=== PATIENT | female | born 1955 | race Caucasian/White ===

== ENCOUNTER 2018-12-27 06:30 | Day surgery (SDC) | payer OTHER | END 2018-12-27 10:50 | disposition home or self-care (01) | LOC: CIR.AMB 06:30 | DX: R15.9 Full incontinence of feces (principal) | CPT/HCPCS: 64581; C1778 ==

== ENCOUNTER 2019-01-10 06:00 | Day surgery (SDC) | payer OTHER ==
[~2019-01-10 06:00] MED LIST: BIOTIN PO; ESSENTIAL DAIL1 EACH PO; LEXA; PANTOPRAZOLE PO; SYNTH PO; VIT D PO; ZANTAC150 M3 PO
== END 2019-01-10 10:20 | disposition home or self-care (01) ==
LOC: CIR.AMB 06:00
DX: R15.9 Full incontinence of feces (principal)
CPT/HCPCS: 64590; C1767

== ENCOUNTER 2019-04-01 21:34 | Emergency (ER) | payer OTHER ==
[~2019-04-01] VITALS: Ht 152.4 cm; Wt 73.0 kg
[2019-04-01] MEDS ORDERED: PANADOL (22:40)
[2019-04-01] MEDS ORDERED: [UNRECOGNIZED DRUG - OTHER] (22:41)
[2019-04-01] MEDS ORDERED: PREVACID (22:42)
== END 2019-04-01 23:54 | disposition home or self-care (01) ==
LOC: ER 21:34
DX: M47.892 Other spondylosis, cervical region (principal); M50.323 Other cervical disc degeneration at C6-C7 level